=== PATIENT | female | born 1985 | race Caucasian/White ===

== ENCOUNTER → 2016-04-21 | Outpatient (REF) | payer OTHER ==
[~2016-04-21] MED LIST: BACT2CRE TOP; BENT20TA PO; DICY20TA11 PO; DYMI137S; LIAL1.2T PO; MESA50SU PR; PROV2.5T PO; SALI0.653; TRI-TAB PO; UCER9TAB PO; [UNRECOGNIZED DRUG - CODE] PR
== END ==
LOC: M LAB REF 17:02
PROVIDERS: ATTEND Physician Assistant Medical
DX: J31.0 Chronic rhinitis (principal)

== ENCOUNTER 2016-05-24 12:28 | Outpatient (CLI) | payer OTHER ==
[~2016-05-24 12:28] MED LIST changes: +diphenhydrAMINE 25 MG CAP PO SCH
[2016-05-24] MEDS ORDERED: inFLIXimab INJECTION 400 MG in NS 210 ML IV ONE (12:45)
[2016-05-24] MEDS ORDERED: NS 1,000 ML IV SCH (12:45)
[2016-05-24] MEDS ORDERED: ESTRCAP PO (16:14)
[2016-05-24] MEDS ORDERED: PROV10TA PO (16:14)
== END 2016-05-24 15:55 | disposition home or self-care (01) ==
LOC: M INFU 12:28
PROVIDERS: ATTEND Internal Medicine Gastroenterology
DX: K51.90 Ulcerative colitis, unspecified, without complications (principal); Z88.2 Allergy status to sulfonamides; Z88.8 Allergy status to other drugs, medicaments and biological substances; Z79.818 Long term (current) use of other agents affecting estrogen receptors and estrogen levels
CPT/HCPCS: 96413; 96415; J1745

== ENCOUNTER → 2016-06-21 | Outpatient (CLI) | payer OTHER ==
[~2016-06-21] MED LIST changes: +ESTRCAP PO; +INFL10VL IV; +PRED10PA PO; +PREN1TAB11 PO; +PROV10TA PO; +TRINTAB PO; -diphenhydrAMINE 25 MG CAP PO SCH
[2016-06-21 13:31] LABS: BASO % 0.4 % (0.0-1.0); EOS # 0.5 K/mm3 (0.0-0.50); EOS % 3.8 % (0.0-3.0); LARGE UNSTAINED CELL # 0.2 K/mm3 (0.0-0.4); LARGE UNSTAINED CELL % 1.6 % (0.0-4.0); LYMPH # 4.5 K/mm3 (1.5-4.5); LYMPH % 35.7 % (24.0-44.0); MEAN CORPUSCULAR HEMOGLOBIN 29.4 pg (27.0-33.0); MEAN CORPUSCULAR HGB CONC 32.8 g/dl (32.0-36.5); MEAN CORPUSCULAR VOLUME 89.5 fl (80.0-96.0); MONO # 0.6 K/mm3 (0.0-0.8); MONO % 4.8 % (0.0-5.0); NEUTROPHILS # 6.5 K/mm3 (1.8-7.7); NEUTROPHILS % 53.7 % (36.0-66.0); PLATELET COUNT, AUTOMATED 238 k/mm3 (150-450); RED CELL DISTRIBUTION WIDTH 12.7 % (11.5-14.5)
[2016-06-21 13:56] LABS: ALBUMIN 3.9 GM/DL (3.2-5.2); ALBUMIN/GLOBULIN RATIO 1.22 (1.00-1.93); ALKALINE PHOSPHATASE 124 U/L (45-117); ALT/SGPT 33 U/L (12-78); ANION GAP 9 MEQ/L (8-16); AST/SGOT 19 U/L (15-37); BILIRUBIN,TOTAL 0.3 MG/DL (0.2-1.0); BLOOD UREA NITROGEN 10 MG/DL (7-18); CARBON DIOXIDE LEVEL 28 MEQ/L (21-32); CHLORIDE LEVEL 104 MEQ/L (98-107); CREATININE FOR GFR 0.56 MG/DL (0.55-1.02); GLOMERULAR FILTRATION RATE > 60.0 (>60); SODIUM LEVEL 141 MEQ/L (136-145); TOTAL PROTEIN 7.1 GM/DL (6.4-8.2)
[2016-06-22 10:37] LABS: GLUCOSE, FASTING 70 MG/DL (70-105); WHITE BLOOD COUNT 12.1 K/mm3 (4.0-10.0)
== END ==
LOC: M LAB 12:28
PROVIDERS: ATTEND Internal Medicine Gastroenterology
DX: K51.318 Ulcerative (chronic) rectosigmoiditis with other complication (principal)

== ENCOUNTER → 2016-06-22 | Outpatient (REF) | payer OTHER | LOC: M LAB REF 09:34 | PROVIDERS: ATTEND Internal Medicine Gastroenterology | DX: K51.318 Ulcerative (chronic) rectosigmoiditis with other complication (principal) ==

== ENCOUNTER → 2016-06-23 | Outpatient (CLI) | payer OTHER ==
[~2016-06-23] VITALS: Ht 144.8 cm; Wt 76.2 kg
[~2016-06-23] MED LIST changes: +LIDOCAINE 2% INJ 100 MG/5 ML SDV (FOR ANES.) As Ordered ONE; +NS 1,000 ML IV SCH; +PROPOFOL 200 MG/20 ML VIAL As Ordered ONE
--- NOTE | 2016-06-23 15:26 | ROOR ---
Patient Name: Alice Garcia Procedure Date: 06/23/2016 2:51 PM Date of : 1985 Age: 30 Room: [facility] Gender: Female Note Status: Finalized Procedure: Colonoscopy Indications: Chronic diarrhea, Hematochezia, Personal history of ulcerative colitis Providers: Ronn EISENBERG MD Referring MD: Kurt Stephenson NP Requesting Provider: Medicines: Monitored Anesthesia Care Complications: No immediate complications. Procedure: Pre-Anesthesia Assessment: - The heart rate, respiratory rate, oxygen saturations, blood pressure, adequacy of pulmonary ventilation, and response to care were monitored throughout the procedure. The Colonoscope was introduced through the anus and advanced to 5 cm into the ileum. The colonoscopy was performed without difficulty. The patient tolerated the procedure well. The quality of the bowel preparation was good. Findings: The perianal and digital rectal examinations were normal. The terminal ileum appeared normal. Mild inflammation characterized by erythema and loss of vascularity was found in the rectum and in the recto-sigmoid colon. Biopsies were taken with a cold forceps for histology. The exam was otherwise without abnormality. Four biopsies were obtained with cold forceps for evaluation of chronic inflammation in the ascending colon, as well as four biopsies in the transverse colon, four biopsies in the descending colon and four biopsies in the sigmoid colon. Impression: - The examined portion of the ileum was normal. - The entire colon is essentially normal as well except for very mild inflammation was found in the rectum and in the recto-sigmoid colon secondary to proctosigmoid ulcerative colitis. Biopsied. - The examination was otherwise normal. - Biopsies performed in the ascending colon, in the transverse colon, in the descending colon and in the sigmoid colon. Recommendation: - Await pathology results. - Continue present medications. - Symptoms of diarrhea/pain may be out of proportion of todays minimal visual findings. - Your symptoms may be related to Irritable bowel rather than a flare of Inflammatory bowel. I will wait on biopsies before definitely changing biologic to Entyvio. -Start/cont Prednisone for now, -Use Dicyclomine as needed. -Return to my office as scheduled. - Return to my office in 2 weeks. Ronn Eisenberg MD Ronn EISENBERG MD 06/23/2016 3:25:30 PM This report has been signed electronically. Number of Addenda: 0 Note Initiated On: 06/23/2016 2:51 PM Estimated Blood Loss: Estimated blood loss: none.
[2016-06-23 15:46] VITALS: BP 117/69
== END | disposition home or self-care (01) ==
LOC: M OPP 12:43
PROVIDERS: ATTEND Internal Medicine Gastroenterology
DX: K92.1 Melena (principal); R19.7 Diarrhea, unspecified; K51.90 Ulcerative colitis, unspecified, without complications; K51.20 Ulcerative (chronic) proctitis without complications; E28.2 Polycystic ovarian syndrome; E04.1 Nontoxic single thyroid nodule; Z88.2 Allergy status to sulfonamides; Z88.8 Allergy status to other drugs, medicaments and biological substances; Z79.52 Long term (current) use of systemic steroids; Z79.899 Other long term (current) drug therapy; Z80.41 Family history of malignant neoplasm of ovary; Z80.0 Family history of malignant neoplasm of digestive organs

== ENCOUNTER 2016-07-05 12:33 | Outpatient (CLI) | payer OTHER ==
[~2016-07-05] VITALS: Ht 144.8 cm; Wt 75.0 kg
[~2016-07-05 12:33] MED LIST changes: -LIDOCAINE 2% INJ 100 MG/5 ML SDV (FOR ANES.) As Ordered ONE; -NS 1,000 ML IV SCH; -PROPOFOL 200 MG/20 ML VIAL As Ordered ONE; +diphenhydrAMINE 25 MG CAP PO SCH
[2016-07-05] MEDS ORDERED: NS 1,000 ML IV SCH (13:00)
[2016-07-05] MEDS ORDERED: inFLIXimab INJECTION 400 MG in NS 210 ML IV ONE (14:00)
[2016-07-05] MEDS ORDERED: ESTR1TAB3 PO (15:30)
== END 2016-07-05 15:35 | disposition home or self-care (01) ==
LOC: M INFU 12:33
PROVIDERS: ATTEND Internal Medicine Gastroenterology
DX: K51.90 Ulcerative colitis, unspecified, without complications (principal); Z79.52 Long term (current) use of systemic steroids; Z88.2 Allergy status to sulfonamides; Z88.8 Allergy status to other drugs, medicaments and biological substances
CPT/HCPCS: 96413; 96415; J1745

== ENCOUNTER → 2016-07-13 | Outpatient (CLI) | payer OTHER ==
[~2016-07-13] MED LIST changes: +ESTR1TAB3 PO; -diphenhydrAMINE 25 MG CAP PO SCH
== END ==
LOC: M LAB 09:39
PROVIDERS: ATTEND Internal Medicine Gastroenterology
DX: K51.318 Ulcerative (chronic) rectosigmoiditis with other complication (principal)

== ENCOUNTER 2016-08-16 12:38 | Outpatient (CLI) | payer OTHER ==
[~2016-08-16] VITALS: Ht 144.8 cm; Wt 77.5 kg
[2016-08-16] MEDS ORDERED: VEDOLIZUMAB 300 MG in NS 250 ML IV ONE (12:45)
[2016-08-16] MEDS ORDERED: diphenhydrAMINE 25 MG CAP PO ONE (12:45)
[2016-08-16] MEDS ORDERED: ACETAMINOPHEN TAB 650MG DOSE (2X325MG) PO ONE (12:45)
== END 2016-08-16 15:45 | disposition home or self-care (01) ==
LOC: M INFU 12:38
PROVIDERS: ATTEND Internal Medicine Gastroenterology
DX: K51.318 Ulcerative (chronic) rectosigmoiditis with other complication (principal); Z88.2 Allergy status to sulfonamides; Z79.899 Other long term (current) drug therapy
CPT/HCPCS: 96413; J3380

== ENCOUNTER → 2016-08-23 | Outpatient (CLI) | payer OTHER | LOC: M LAB 08:38 | PROVIDERS: ATTEND Obstetrics & Gynecology | DX: R91.1 Solitary pulmonary nodule (principal) ==

== ENCOUNTER → 2016-11-02 | Outpatient (CLI) | payer OTHER ==
[~2016-11-02] MED LIST changes: +SALI0.6523; -SALI0.653; -TRINTAB PO; +TRINTAB3 PO
== END ==
LOC: M SMT 08:20
PROVIDERS: ATTEND Obstetrics & Gynecology
DX: N91.1 Secondary amenorrhea (principal)

== ENCOUNTER → 2017-01-02 | Outpatient (CLI) | payer OTHER | LOC: M LAB 15:53 | PROVIDERS: ATTEND Obstetrics & Gynecology | DX: E28.2 Polycystic ovarian syndrome (principal) ==

== ENCOUNTER → 2017-01-31 | Outpatient (CLI) | payer OTHER ==
[2017-01-31 11:05] LABS: BASO % 0.4 % (0.0-1.0); EOS # 0.2 10^3/uL (0.0-0.50); EOS % 2.1 % (0.0-3.0); IMMATURE GRANULOCYTE % 0.3 % (0-0); LYMPH # 4.1 10^3/uL (1.5-4.5); LYMPH % 38.8 % (24.0-44.0); MEAN CORPUSCULAR HEMOGLOBIN 30.2 pg (27.0-33.0); MEAN CORPUSCULAR HGB CONC 33.2 g/dl (32.0-36.5); MEAN CORPUSCULAR VOLUME 91.2 fl (80.0-96.0); MONO # 0.4 10^3/uL (0.0-0.8); MONO % 4.1 % (0.0-5.0); NEUTROPHILS # 5.7 10^3/uL (1.8-7.7); NEUTROPHILS % 54.3 % (36.0-66.0); PLATELET COUNT, AUTOMATED 234 10^3/uL (150-450); RED CELL DISTRIBUTION WIDTH 13.4 % (11.5-14.5); WHITE BLOOD COUNT 10.5 10^3/uL (4.0-10.0)
[2017-01-31 11:46] LABS: ALKALINE PHOSPHATASE 103 U/L (45-117); ALT/SGPT 26 U/L (12-78); ANION GAP 8 MEQ/L (8-16); AST/SGOT 15 U/L (15-37); BLOOD UREA NITROGEN 11 MG/DL (7-18); CARBON DIOXIDE LEVEL 29 MEQ/L (21-32); CHLORIDE LEVEL 104 MEQ/L (98-107); CREATININE FOR GFR 0.61 MG/DL (0.55-1.02); GLOMERULAR FILTRATION RATE > 60.0 (>60); GLUCOSE, FASTING 130 MG/DL (70-105); POTASSIUM SERUM 3.8 MEQ/L (3.5-5.1); SODIUM LEVEL 141 MEQ/L (136-145)
[2017-01-31 11:47] LABS: ALBUMIN 3.4 GM/DL (3.2-5.2); BILIRUBIN,TOTAL 0.3 MG/DL (0.2-1.0); TOTAL PROTEIN 6.5 GM/DL (6.4-8.2)
== END ==
LOC: M LAB 09:28
PROVIDERS: ATTEND Internal Medicine Gastroenterology
DX: K51.30 Ulcerative (chronic) rectosigmoiditis without complications (principal)

== ENCOUNTER → 2017-03-12 | Outpatient (CLI) | payer OTHER | LOC: M LAB 10:25 | PROVIDERS: ATTEND Obstetrics & Gynecology | DX: E28.2 Polycystic ovarian syndrome (principal) ==

== ENCOUNTER → 2017-04-14 | Outpatient (CLI) | payer OTHER ==
[2017-04-16 10:46] LABS: PROGESTERONE 15.4 NG/ML
== END ==
LOC: M LAB 10:24
DX: N91.1 Secondary amenorrhea (principal)
CPT/HCPCS: 84144

== ENCOUNTER → 2017-05-13 | Outpatient (CLI) | payer OTHER | LOC: M LAB 13:00 | DX: N91.1 Secondary amenorrhea (principal) ==

== ENCOUNTER → 2017-05-14 | Outpatient (CLI) | payer OTHER | LOC: M RAD 16:02 | DX: J20.9 Acute bronchitis, unspecified (principal) ==

== ENCOUNTER → 2017-05-21 | Outpatient (CLI) | payer OTHER ==
[2017-05-21 12:29] LABS: HCG, SERUM QUANTITATIVE 238 MIU/ML
== END ==
LOC: M LAB 11:09
DX: Z32.01 Encounter for pregnancy test, result positive (principal)
CPT/HCPCS: 84702

== ENCOUNTER → 2017-05-23 | Outpatient (CLI) | payer OTHER ==
[2017-05-23 09:19] LABS: HCG, SERUM QUANTITATIVE 508 MIU/ML
== END ==
LOC: M LAB 08:25
DX: Z32.01 Encounter for pregnancy test, result positive (principal)

== ENCOUNTER → 2017-05-25 | Outpatient (CLI) | payer OTHER ==
[2017-05-25 09:04] LABS: HCG, SERUM QUANTITATIVE 1018 MIU/ML
== END ==
LOC: M LAB 08:10
DX: N91.1 Secondary amenorrhea (principal)

== ENCOUNTER → 2017-05-31 | Outpatient (CLI) | payer OTHER | LOC: M RAD 10:27 | DX: Z34.81 Encounter for supervision of other normal pregnancy, first trimester (principal); Z3A.01 Less than 8 weeks gestation of pregnancy ==

== ENCOUNTER → 2017-07-03 | Outpatient (CLI) | payer OTHER ==
[2017-07-03 18:42] LABS: BASO % 0.3 % (0.0-1.0); EOS # 0.3 10^3/uL (0.0-0.50); EOS % 1.8 % (0.0-3.0); HEMATOCRIT 37.9 % (36.0-47.0); HEMOGLOBIN 12.2 g/dl (12.0-16.0); IMMATURE GRANULOCYTE % 0.3 % (0-3.0); LYMPH # 4.3 10^3/uL (1.5-4.5); LYMPH % 28.9 % (24.0-44.0); MEAN CORPUSCULAR HEMOGLOBIN 29.5 pg (27.0-33.0); MEAN CORPUSCULAR HGB CONC 32.2 g/dl (32.0-36.5); MEAN CORPUSCULAR VOLUME 91.8 fl (80.0-96.0); MONO # 0.9 10^3/uL (0.0-0.8); MONO % 6.2 % (0.0-5.0); NEUTROPHILS # 9.2 10^3/uL (1.8-7.7); NEUTROPHILS % 62.5 % (36.0-66.0); PLATELET COUNT, AUTOMATED 233 10^3/uL (150-450); RED BLOOD COUNT 4.13 10^6/uL (4.00-5.40); RED CELL DISTRIBUTION WIDTH 13.9 % (11.5-14.5); WHITE BLOOD COUNT 14.8 10^3/uL (4.0-10.0)
[2017-07-03 20:55] LABS: CHLAMYDIA DNA AMPLIFICATION NEGATIVE (NEGATIVE); GC DNA AMPLIFICATION NEGATIVE (NEGATIVE)
[2017-07-04 11:56] LABS: RUBELLA IgG QUALITATIVE IMMUNE (IMMUNE)
[2017-07-04 12:12] LABS: HBsAg Prenatal NEGATIVE (NEGATIVE)
[2017-07-04 12:27] LABS: HEPATITIS C VIRUS ABY INDEX 0.2 INDEX (<0.8)
[2017-07-04 12:28] LABS: HIV 1&2 SCREEN CENTAUR NEGATIVE (NEGATIVE)
== END ==
LOC: M SMT 15:05
DX: Z34.81 Encounter for supervision of other normal pregnancy, first trimester (principal); Z3A.10 10 weeks gestation of pregnancy
CPT/HCPCS: 86762

== ENCOUNTER → 2017-07-31 | Outpatient (REF) | payer OTHER | LOC: M LAB REF 17:10 | DX: Z34.82 Encounter for supervision of other normal pregnancy, second trimester (principal) ==

== ENCOUNTER → 2017-08-09 | Outpatient (CLI) | payer OTHER ==
[2017-08-12 00:06] LABS: QUANTIFERON GOLD TB Negative (Negative); TB Test (QFT) Antigen Minus Ni 0.01 IU/mL (.); TB Test (QFT) Mitogen 8.33 IU/mL (.); TB Test (QFT) Nil 0.29 IU/mL (.)
== END ==
LOC: M LAB 11:51
DX: K51.30 Ulcerative (chronic) rectosigmoiditis without complications (principal)

== ENCOUNTER → 2017-08-27 | Outpatient (CLI) | payer OTHER | LOC: M RAD 17:30 | DX: Z34.82 Encounter for supervision of other normal pregnancy, second trimester (principal) | CPT/HCPCS: 76811 ==

== ENCOUNTER → 2017-08-28 | Outpatient (REF) | payer OTHER | LOC: M LAB REF 16:32 | DX: J33.9 Nasal polyp, unspecified (principal) ==

== ENCOUNTER → 2017-09-11 | Outpatient (CLI) | payer OTHER | LOC: M RAD 18:03 | DX: Z34.82 Encounter for supervision of other normal pregnancy, second trimester (principal); Z3A.20 20 weeks gestation of pregnancy; Z36.89 Encounter for other specified antenatal screening | CPT/HCPCS: 76816 ==

== ENCOUNTER → 2017-10-24 | Outpatient (CLI) | payer OTHER ==
[2017-10-24 10:29] LABS: GLUCOSE CHALLENGE TEST 1 HOUR 211 MG/DL (LESS THAN 140)
[2017-10-24 10:31] LABS: HEMATOCRIT 36.2 % (36.0-47.0); HEMOGLOBIN 11.8 g/dl (12.0-15.5); MEAN CORPUSCULAR HEMOGLOBIN 30.4 pg (27.0-33.0); MEAN CORPUSCULAR HGB CONC 32.6 g/dl (32.0-36.5); MEAN CORPUSCULAR VOLUME 93.3 fl (80.0-96.0); PLATELET COUNT, AUTOMATED 180 10^3/uL (150-450); RED BLOOD COUNT 3.88 10^6/uL (4.00-5.40); WHITE BLOOD COUNT 14.2 10^3/uL (4.0-10.0)
== END ==
LOC: M LAB 08:04
DX: Z34.82 Encounter for supervision of other normal pregnancy, second trimester (principal); Z3A.00 Weeks of gestation of pregnancy not specified
CPT/HCPCS: 82950

== ENCOUNTER → 2017-11-30 | Outpatient (CLI) | payer OTHER | LOC: M RAD 07:13 | DX: O24.415 Gestational diabetes mellitus in pregnancy, controlled by oral hypoglycemic drugs (principal); Z36.9 Encounter for antenatal screening, unspecified; Z3A.33 33 weeks gestation of pregnancy | CPT/HCPCS: 76816 ==

== ENCOUNTER → 2017-12-21 | Outpatient (CLI) | payer OTHER | LOC: M RAD 06:58 | DX: O24.415 Gestational diabetes mellitus in pregnancy, controlled by oral hypoglycemic drugs (principal); Z3A.35 35 weeks gestation of pregnancy | CPT/HCPCS: 76816 ==

== ENCOUNTER → 2017-12-28 | Outpatient (REF) | payer OTHER | LOC: M LAB REF 16:59 | DX: Z34.83 Encounter for supervision of other normal pregnancy, third trimester (principal); Z36.85 Encounter for antenatal screening for Streptococcus B ==

== ENCOUNTER → 2018-01-11 | Outpatient (CLI) | payer OTHER | LOC: M RAD 07:34 | DX: O24.415 Gestational diabetes mellitus in pregnancy, controlled by oral hypoglycemic drugs (principal); Z3A.38 38 weeks gestation of pregnancy | CPT/HCPCS: 76816 ==

== ENCOUNTER 2018-01-22 06:47 | Inpatient (IN) | payer OTHER ==
[2018-01-22] MEDS: LR 1,000 ML IV ×5 (00:30→23:30)
[2018-01-22] MEDS ORDERED: LR 1,000 ML IV (07:30)
[2018-01-22 08:11] LABS: HEMATOCRIT 38.5 % (36.0-47.0); HEMOGLOBIN 12.6 g/dl (12.0-15.5); MEAN CORPUSCULAR HGB CONC 32.7 g/dl (32.0-36.5); MEAN CORPUSCULAR VOLUME 88.5 fl (80.0-96.0); PLATELET COUNT, AUTOMATED 173 10^3/uL (150-450); RED BLOOD COUNT 4.35 10^6/uL (4.00-5.40)
[2018-01-22] MEDS: BICITRA 30ML SOLN UDC PO (08:33)
[2018-01-22] MEDS ORDERED: ONDANSETRON 4MG/2ML VIAL (J2405) IV ×2 (09:01→10:45)
[2018-01-22] MEDS ORDERED: NALBUPHINE HCL 10 MG/ML AMP (J2300) IV ×2 (09:01→10:45)
[2018-01-22] MEDS ORDERED: NALOXONE INJ 0.4 MG/1 ML VIAL (J2310) IV ×2 (09:01)
[2018-01-22] MEDS ORDERED: PHENYLephrine HCL 500 MCG/5 ML (100MCG/ML) SYRINGE (J2370) As Ordered (09:22)
[2018-01-22] MEDS ORDERED: OXYTOCIN INJ 10 UNITS/ML VIAL (J2590) As Ordered ×4 (09:22→10:06)
[2018-01-22] MEDS ORDERED: KETOROLAC 60 MG/2 ML VIAL (J1885) As Ordered (09:22)
[2018-01-22] MEDS ORDERED: MORPHINE PRES-FREE INJ 10 MG/10 ML VIAL (J2274) As Ordered (09:22)
[2018-01-22] MEDS ORDERED: dexameTHASONE 4 MG/ML 1ML VIAL (J1100) As Ordered (09:22)
[2018-01-22] MEDS ORDERED: ePHEDrine SULFATE 25 MG/5 ML(5MG/ML) SYRINGE As Ordered (09:22)
[2018-01-22] MEDS ORDERED: ONDANSETRON 4MG/2ML VIAL (J2405) As Ordered (09:22)
[2018-01-22] MEDS ORDERED: OXYTOCIN 30 UNITS IN 0.9% NaCl 500ML IV BAG (J2590) As Ordered (10:07)
[2018-01-22] MEDS ORDERED: MORPHINE 10 MG/ML 1ML VIAL (J2270) IV (10:45)
[2018-01-22] MEDS ORDERED: MOM 30ML SUSPENSION UDC PO (10:45)
[2018-01-22] MEDS ORDERED: DOCUSATE SODIUM 100 MG CAP PO (10:45)
[2018-01-22] MEDS ORDERED: PERCOCET 5MG/325MG TAB PO (10:45)
[2018-01-22] MEDS ORDERED: fentaNYL 100 MCG/2 ML INJECTION (J3010) IV (10:45)
[2018-01-22] MEDS: OXYTOCIN DRIP 30 UNITS in APPROPRIATE DILUENT 1 EA IV (11:16)
[2018-01-22] MEDS: MEASLES,MUMPS,RUBELLA VACCINE INJ (MMR-II) (90707) SC (13:44)
[2018-01-22] MEDS: KETOROLAC 30 MG/ML VIAL (J1885) IV ×2 (15:51→21:57)
[2018-01-22] MEDS: METOCLOPRAMIDE INJ 10MG/2ML VIAL (J2765) IV (18:31)
[2018-01-23] MEDS: KETOROLAC 30 MG/ML VIAL (J1885) IV (03:24)
[2018-01-23 07:30] LABS: HEMATOCRIT 29.4 % (36.0-47.0); MEAN CORPUSCULAR HEMOGLOBIN 28.7 pg (27.0-33.0); MEAN CORPUSCULAR HGB CONC 32.7 g/dl (32.0-36.5); PLATELET COUNT, AUTOMATED 149 10^3/uL (150-450); RED BLOOD COUNT 3.34 10^6/uL (4.00-5.40); RED CELL DISTRIBUTION WIDTH 15.1 % (11.5-14.5); WHITE BLOOD COUNT 15.8 10^3/uL (4.0-10.0)
[2018-01-23 07:36] LABS: HEMOGLOBIN 9.6 g/dl (12.0-15.5)
[2018-01-23] MEDS: PERCOCET 5MG/325MG TAB PO ×2 (10:20→22:07)
[2018-01-23] MEDS: PRENATAL VITAMINS CHEWABLE TABLET PO (10:20)
[2018-01-23] MEDS: INFLUENZA QUADRIVALENT PF VACCINE 0.5ML SYRINGE (90686) IM (10:21)
[2018-01-23] MEDS: IBUPROFEN 800 MG TAB PO ×2 (12:26→20:14)
[2018-01-24] MEDS: IBUPROFEN 800 MG TAB PO (04:14)
[2018-01-24] MEDS: PERCOCET 5MG/325MG TAB PO (10:18)
[2018-01-24] MEDS: PRENATAL VITAMINS CHEWABLE TABLET PO (10:19)
== END 2018-01-24 11:20 | disposition home or self-care (01) | DRG 788 ==
LOC: M LDI 06:47 → M OBS 11:39
PROVIDERS: Obstetrics & Gynecology
PROC: 10D00Z1 Extraction of Products of Conception, Low, Open Approach (ICD-10-PCS; principal; 2018-01-22 08:30)
DX: O34.211 Maternal care for low transverse scar from previous cesarean delivery (principal); Z3A.39 39 weeks gestation of pregnancy; O24.425 Gestational diabetes mellitus in childbirth, controlled by oral hypoglycemic drugs; Z37.0 Single live birth

== ENCOUNTER → 2018-02-05 | Outpatient (REF) | payer OTHER | LOC: M LAB REF 13:05 | DX: R30.0 Dysuria (principal) ==

== ENCOUNTER → 2018-10-26 | Outpatient (CLI) | payer OTHER ==
[~2018-10-26] MED LIST changes: +IBUP1TAB7 PO; +METF500T13 PO; +PERCOCET PO; -SALI0.6523; +SALI0.6528; +TRINTAB PO; -TRINTAB3 PO
[2018-10-28 11:18] LABS: HEPATITIS B SURFACE ANTIBODY NEGATIVE (POSITIVE)
== END ==
LOC: M LAB 09:54
PROVIDERS: ATTEND Internal Medicine Gastroenterology
DX: K51.20 Ulcerative (chronic) proctitis without complications (principal)

== ENCOUNTER → 2018-11-09 | Outpatient (CLI) | payer OTHER | LOC: M LAB 10:40 | PROVIDERS: ATTEND Internal Medicine Gastroenterology | DX: K51.30 Ulcerative (chronic) rectosigmoiditis without complications (principal) ==

== ENCOUNTER → 2018-11-11 | Outpatient (CLI) | payer OTHER | LOC: M LAB 14:34 | PROVIDERS: ATTEND Internal Medicine Gastroenterology | DX: K51.30 Ulcerative (chronic) rectosigmoiditis without complications (principal) ==

== ENCOUNTER → 2018-12-25 | Outpatient (REF) | payer OTHER ==
[2018-12-28 15:06] LABS: HPV HYBRID CAPTURE II Negative (Negative)
== END ==
LOC: M LAB REF 18:48
PROVIDERS: ATTEND Obstetrics & Gynecology
DX: Z12.4 Encounter for screening for malignant neoplasm of cervix (principal)
CPT/HCPCS: 87624; G0123

== ENCOUNTER → 2018-12-25 | Outpatient (CLI) | payer OTHER | LOC: M SMT 14:39 | PROVIDERS: ATTEND Obstetrics & Gynecology | DX: Z31.438 Encounter for other genetic testing of female for procreative management (principal) ==

== ENCOUNTER → 2019-03-20 | Outpatient (REF) | payer OTHER ==
[2019-03-25 08:06] LABS: BORDETELLA PARAPERTUSSIS PCR Negative (Negative); BORDETELLA PERTUSSIS BY PCR Negative (Negative)
== END ==
LOC: M SFHCLERA 12:44
PROVIDERS: ATTEND Nurse Practitioner Family
DX: Z20.818 Contact with and (suspected) exposure to other bacterial communicable diseases (principal)

== ENCOUNTER → 2019-12-06 | Outpatient (CLI) | payer OTHER | LOC: M LAB 10:35 | PROVIDERS: ATTEND Internal Medicine Gastroenterology | DX: K51.30 Ulcerative (chronic) rectosigmoiditis without complications (principal) ==

== ENCOUNTER → 2019-12-11 | Outpatient (REF) | payer OTHER | LOC: M LAB REF 12:16 | PROVIDERS: ATTEND Internal Medicine Gastroenterology | DX: K51.30 Ulcerative (chronic) rectosigmoiditis without complications (principal) ==

== ENCOUNTER → 2021-06-06 | Outpatient (CLI) | payer OTHER ==
[~2021-06-06] MED LIST changes: -DICY20TA11 PO; +DICY20TA20 PO
== END ==
LOC: M RAD 15:03
PROVIDERS: ATTEND Nurse Practitioner Family
DX: J45.40 Moderate persistent asthma, uncomplicated (principal)

== ENCOUNTER → 2021-07-02 | Outpatient (CLI) | payer OTHER ==
[2021-07-02 10:57] LABS: BASO # 0.1 10^3/uL (0.0-0.2); BASO % 0.5 % (0.0-1.0); EOS # 0.2 10^3/uL (0.0-0.5); HEMATOCRIT 41.3 % (36.0-47.0); HEMOGLOBIN 13.6 g/dl (12.0-15.5); LYMPH % 33.6 % (24.0-44.0); MEAN CORPUSCULAR HEMOGLOBIN 29.4 pg (27.0-33.0); MEAN CORPUSCULAR HGB CONC 32.9 g/dl (32.0-36.5); MEAN CORPUSCULAR VOLUME 89.4 fl (80.0-96.0); MONO # 0.6 10^3/uL (0.0-0.8); MONO % 4.9 % (2.0-8.0); NEUTROPHILS % 58.7 % (36.0-66.0); PLATELET COUNT, AUTOMATED 252 10^3/uL (150-450); RED BLOOD COUNT 4.62 10^6/uL (4.00-5.40); WHITE BLOOD COUNT 11.9 10^3/uL (4.0-10.0)
[2021-07-02 11:28] LABS: ALBUMIN 3.7 GM/DL (3.2-5.2); ALT/SGPT 24 U/L (12-78); BILIRUBIN,TOTAL 0.3 MG/DL (0.2-1.0); BLOOD UREA NITROGEN 11 MG/DL (7-18); CARBON DIOXIDE LEVEL 29 MEQ/L (21-32); CHLORIDE LEVEL 108 MEQ/L (98-107); CHOLESTEROL LEVEL 209 MG/DL (<200); CHOLESTEROL RISK RATIO 3.073 (<5); CREATININE FOR GFR 0.59 MG/DL (0.55-1.30); GLOMERULAR FILTRATION RATE > 60.0 (>60); GLUCOSE, FASTING 100 MG/DL (70-100); HDL CHOLESTEROL 68 MG/DL (>40); LDL CHOLESTEROL 125 MG/DL (<100); NON-HDL-C 141 MG/DL; POTASSIUM SERUM 4.1 MEQ/L (3.5-5.1); SODIUM LEVEL 141 MEQ/L (136-145); TRIGLYCERIDES LEVEL 82 MG/DL (<150)
== END ==
LOC: M LAB 09:50
PROVIDERS: ATTEND Nurse Practitioner Family
DX: Z00.00 Encounter for general adult medical examination without abnormal findings (principal)

== ENCOUNTER → 2021-07-07 | Outpatient (CLI) | payer OTHER ==
[2021-07-07 15:22] LABS: C REACTIVE PROTEIN QUANTITATIV 2.83 MG/DL (0.00-0.30)
[2021-07-07 15:39] LABS: HEPATITIS B SURFACE ANTIGEN NEGATIVE (NEGATIVE)
== END ==
LOC: M LAB 13:53
PROVIDERS: ATTEND Internal Medicine Gastroenterology
DX: K51.30 Ulcerative (chronic) rectosigmoiditis without complications (principal)

== ENCOUNTER → 2021-07-09 | Outpatient (REF) | payer OTHER | LOC: M LAB REF 12:42 | PROVIDERS: ATTEND Internal Medicine Gastroenterology | DX: K51.30 Ulcerative (chronic) rectosigmoiditis without complications (principal) ==

== ENCOUNTER → 2021-10-01 | Outpatient (REF) | payer OTHER | LOC: M LAB REF 08:10 | PROVIDERS: ATTEND Internal Medicine Gastroenterology | DX: K51.318 Ulcerative (chronic) rectosigmoiditis with other complication (principal) ==

== ENCOUNTER → 2021-11-30 | Outpatient (REF) | payer OTHER | LOC: M PLALAB 11:41 | PROVIDERS: ATTEND Nurse Practitioner Family | DX: Z12.4 Encounter for screening for malignant neoplasm of cervix (principal) | CPT/HCPCS: 87624; G0123 ==

== ENCOUNTER → 2022-01-05 | Outpatient (CLI) | payer OTHER ==
[~2022-01-05] MED LIST changes: +ADVA45AE INH; +DICY10CA13 PO; +HUMI40IN2 SC; +JUNETAB2 PO; +MONT10TA97 PO
== END ==
LOC: M LABSMTC 10:03
PROVIDERS: ATTEND Anesthesiology
DX: Z01.818 Encounter for other preprocedural examination (principal); Z11.52 Encounter for screening for COVID-19

== ENCOUNTER 2022-01-10 07:41 | Day surgery (SDC) | payer OTHER ==
[~2022-01-10] VITALS: Ht 144.8 cm; Wt 82.6 kg
[~2022-01-10 07:41] MED LIST changes: +NS 1,000 ML IV ONE
[2022-01-10] MEDS ORDERED: propofoL 200 MG/20 ML VIAL As Ordered ONE ×2 (09:08→09:16)
[2022-01-10] MEDS ORDERED: LIDOCAINE 2% 100MG/5ML SDV (FOR ANES.) As Ordered ONE (09:08)
[2022-01-10 09:40] VITALS: BP 147/79
== END 2022-01-10 09:47 | disposition home or self-care (01) ==
LOC: M OPP 07:41
PROVIDERS: ATTEND Internal Medicine Gastroenterology
DX: K51.30 Ulcerative (chronic) rectosigmoiditis without complications (principal); K57.30 Diverticulosis of large intestine without perforation or abscess without bleeding; K64.8 Other hemorrhoids; Z80.0 Family history of malignant neoplasm of digestive organs; Z79.1 Long term (current) use of non-steroidal anti-inflammatories (NSAID); Z79.3 Long term (current) use of hormonal contraceptives; Z79.51 Long term (current) use of inhaled steroids; Z79.52 Long term (current) use of systemic steroids; Z79.899 Other long term (current) drug therapy; Z88.2 Allergy status to sulfonamides; Z88.8 Allergy status to other drugs, medicaments and biological substances; E04.2 Nontoxic multinodular goiter; E28.2 Polycystic ovarian syndrome; J45.909 Unspecified asthma, uncomplicated; Z80.41 Family history of malignant neoplasm of ovary; Z86.19 Personal history of other infectious and parasitic diseases

== ENCOUNTER → 2022-06-20 | Outpatient (REF) | payer OTHER ==
[~2022-06-20] MED LIST changes: -NS 1,000 ML IV ONE
== END ==
LOC: M LAB REF 17:07
PROVIDERS: ATTEND Physician Assistant Medical
DX: J31.0 Chronic rhinitis (principal)

== ENCOUNTER → 2022-08-26 | Outpatient (CLI) | payer OTHER ==
[2022-08-26 12:05] LABS: BASO # 0.1 10^3/uL (0.0-0.2); BASO % 0.6 % (0.0-1.0); EOS # 0.3 10^3/uL (0.0-0.5); EOS % 1.9 % (0.0-3.0); HEMATOCRIT 41.1 % (36.0-47.0); HEMOGLOBIN 13.3 g/dl (12.0-15.5); LYMPH # 5.4 10^3/uL (1.5-5.0); LYMPH % 39.3 % (24.0-44.0); MEAN CORPUSCULAR HGB CONC 32.4 g/dl (32.0-36.5); MEAN CORPUSCULAR VOLUME 89.5 fl (80.0-96.0); MONO # 0.5 10^3/uL (0.0-0.8); MONO % 3.9 % (2.0-8.0); NEUTROPHILS # 7.4 10^3/uL (1.5-8.5); PLATELET COUNT, AUTOMATED 234 10^3/uL (150-450); RED BLOOD COUNT 4.59 10^6/uL (4.00-5.40); WHITE BLOOD COUNT 13.8 10^3/uL (4.0-10.0)
[2022-08-26 12:12] LABS: ERYTHROCYTE SEDIMENTATION RATE 42 mm/hr (0-20)
[2022-08-26 12:32] LABS: ALBUMIN 3.2 G/DL (3.2-5.2); ALKALINE PHOSPHATASE 79 U/L (46-116); ALT/SGPT 19 U/L (7.0-40); AST/SGOT 9 U/L (<34); BILIRUBIN,TOTAL 0.4 MG/DL (0.3-1.2); BLOOD UREA NITROGEN 13 MG/DL (9-23); CALCIUM LEVEL 8.8 MG/DL (8.5-10.1); CARBON DIOXIDE LEVEL 25 MMOL/L (20-31); CHLORIDE LEVEL 106 MMOL/L (98-107); CREATININE FOR GFR 0.58 MG/DL (0.55-1.30); GLOMERULAR FILTRATION RATE > 60.0 (>60); GLUCOSE, FASTING 169 MG/DL (60-100); POTASSIUM SERUM 3.9 MMOL/L (3.5-5.1); SODIUM LEVEL 140 MMOL/L (136-145); TOTAL PROTEIN 6.4 G/DL (5.7-8.2)
[2022-08-26 12:48] LABS: HEPATITIS B SURFACE ANTIGEN NEGATIVE (NEGATIVE)
== END ==
LOC: M LAB 11:17
PROVIDERS: ATTEND Internal Medicine Gastroenterology
DX: K51.30 Ulcerative (chronic) rectosigmoiditis without complications (principal)

== ENCOUNTER → 2022-12-16 | Outpatient (CLI) | payer BC ==
[~2022-12-16] MED LIST changes: +DICY-61 PO; -DICY10CA13 PO
[2022-12-16 09:44] LABS: HEMATOCRIT 38.8 % (36.0-47.0); HEMOGLOBIN 12.4 g/dl (12.0-15.5); MEAN CORPUSCULAR HEMOGLOBIN 28.6 pg (27.0-33.0); MEAN CORPUSCULAR VOLUME 89.6 fl (80.0-96.0); PLATELET COUNT, AUTOMATED 235 10^3/uL (150-450); RED BLOOD COUNT 4.33 10^6/uL (4.00-5.40); WHITE BLOOD COUNT 15.4 10^3/uL (4.0-10.0)
[2022-12-16 10:09] LABS: ATYPICAL LYMPH 31 % (0-5); LYMPHOCYTES 27 % (16-44); MONOCYTES 9 % (0-5); NEUTROPHILS 33 % (28-66); PLATELET ESTIMATE NORMAL (NORMAL)
[2022-12-16 10:13] LABS: HEMOGLOBIN A1c 6.3 % (4.0-6.0)
[2022-12-16 10:17] LABS: ALBUMIN 3.2 G/DL (3.2-5.2); ALKALINE PHOSPHATASE 71 U/L (46-116); ALT/SGPT 19 U/L (7.0-40); AST/SGOT < 8 U/L (<34); BILIRUBIN,TOTAL 0.3 MG/DL (0.3-1.2); BLOOD UREA NITROGEN 17 MG/DL (9-23); CALCIUM LEVEL 8.2 MG/DL (8.5-10.1); CARBON DIOXIDE LEVEL 26 MMOL/L (20-31); CHLORIDE LEVEL 107 MMOL/L (98-107); CHOLESTEROL LEVEL 174 MG/DL (<200); CHOLESTEROL RISK RATIO 2.35 (<5); CREATININE FOR GFR 0.68 MG/DL (0.55-1.30); GLOMERULAR FILTRATION RATE > 60.0 (>60); GLUCOSE, FASTING 111 MG/DL (60-100); POTASSIUM SERUM 3.4 MMOL/L (3.5-5.1); SODIUM LEVEL 141 MMOL/L (136-145); THYROID STIMULATING HORMONE 2.473 uIU/ML (0.55-4.78); TOTAL PROTEIN 6.2 G/DL (5.7-8.2); TRIGLYCERIDES LEVEL 85 MG/DL (<150)
== END ==
LOC: M LAB 09:05
PROVIDERS: ATTEND Registered Nurse
DX: R03.0 Elevated blood-pressure reading, without diagnosis of hypertension (principal); R63.5 Abnormal weight gain

== ENCOUNTER → 2023-02-03 | Outpatient (CLI) | payer BC ==
[2023-02-03 16:28] LABS: BASO # 0.1 10^3/uL (0.0-0.2); BASO % 0.7 % (0.0-1.0); EOS # 0.2 10^3/uL (0.0-0.5); EOS % 2.3 % (0.0-3.0); HEMATOCRIT 37.6 % (36.0-47.0); HEMOGLOBIN 12.7 g/dl (12.0-15.5); LYMPH # 3.9 10^3/uL (1.5-5.0); LYMPH % 39.7 % (24.0-44.0); MEAN CORPUSCULAR HEMOGLOBIN 29.4 pg (27.0-33.0); MEAN CORPUSCULAR HGB CONC 33.8 g/dl (32.0-36.5); MONO # 0.8 10^3/uL (0.0-0.8); MONO % 7.7 % (2.0-8.0); NEUTROPHILS # 4.9 10^3/uL (1.5-8.5); NEUTROPHILS % 49.4 % (36.0-66.0); PLATELET COUNT, AUTOMATED 245 10^3/uL (150-450); RED BLOOD COUNT 4.32 10^6/uL (4.00-5.40); WHITE BLOOD COUNT 9.9 10^3/uL (4.0-10.0)
== END ==
LOC: M LAB 15:41
PROVIDERS: ATTEND Registered Nurse
DX: R71.8 Other abnormality of red blood cells (principal)

== ENCOUNTER → 2023-03-19 | Outpatient (CLI) | payer BC | LOC: M RAD 17:05 | PROVIDERS: ATTEND Internal Medicine Pulmonary Disease | DX: J45.40 Moderate persistent asthma, uncomplicated (principal) ==

== ENCOUNTER 2023-07-22 13:31 | Emergency (ER) | payer BC, SELFPAY ==
[~2023-07-22] VITALS: Ht 144.8 cm; Wt 85.7 kg
[~2023-07-22 13:31] MED LIST changes: -ALBU8.5H; -AZEL1SPR3; -FLUC10TA PO; -METF-838; -PRED20TA; -REGL10TA6 PO
[2023-07-22] MEDS ORDERED: ALBU8.5H (13:40)
[2023-07-22] MEDS ORDERED: AZEL1SPR3 (13:40)
[2023-07-22] MEDS ORDERED: METF-838 (13:40)
[2023-07-22] MEDS ORDERED: PRED20TA (13:40)
[2023-07-22 14:37] LABS: BASO # 0.1 10^3/uL (0.0-0.2); BASO % 0.3 % (0.0-1.0); EOS # 0.3 10^3/uL (0.0-0.5); EOS % 1.2 % (0.0-3.0); HEMATOCRIT 38.2 % (36.0-47.0); HEMOGLOBIN 12.6 g/dl (12.0-15.5); LYMPH # 5.2 10^3/uL (1.5-5.0); LYMPH % 24.3 % (24.0-44.0); MEAN CORPUSCULAR HEMOGLOBIN 29.5 pg (27.0-33.0); MEAN CORPUSCULAR VOLUME 89.5 fl (80.0-96.0); MONO # 1.2 10^3/uL (0.0-0.8); MONO % 5.6 % (2.0-8.0); NEUTROPHILS # 14.5 10^3/uL (1.5-8.5); NEUTROPHILS % 68.2 % (36.0-66.0); PLATELET COUNT, AUTOMATED 235 10^3/uL (150-450); RED BLOOD COUNT 4.27 10^6/uL (4.00-5.40); WHITE BLOOD COUNT 21.3 10^3/uL (4.0-10.0)
[2023-07-22 14:58] LABS: ALBUMIN 3.2 G/DL (3.2-5.2); BILIRUBIN,DIRECT 0.1 MG/DL (<0.4); BILIRUBIN,TOTAL 0.4 MG/DL (0.3-1.2); TOTAL PROTEIN 6.4 G/DL (5.7-8.2)
[2023-07-22] MEDS ORDERED: ISOVUE-370 76% 100ML VIAL As Ordered ONE (15:20)
[2023-07-22] MEDS: NS 1,000 ML IV ONE (15:21)
[2023-07-22] MEDS: MORPHINE 4 MG/ML 1ML VIAL IV ONE (15:21)
[2023-07-22] MEDS: ONDANSETRON 4MG 2ML VIAL IV ONE (15:21)
[2023-07-22] MEDS: PIPERACILLIN/TAZOBACTAM SOD 3.375 GM in D5W MINI-BAG PLUS 50 ML IV ONE (16:45)
[2023-07-22] MEDS: ACETAMINOPHEN TAB 650MG DOSE (2X325MG) PO ONE (17:17)
[2023-07-22] MEDS ORDERED: REGL10TA6 PO (18:01)
[2023-07-22] MEDS ORDERED: CIPR-249 PO (18:01)
[2023-07-22] MEDS ORDERED: METR-265 PO (18:01)
[2023-07-22] MEDS ORDERED: FLUC10TA PO (18:04)
[2023-07-22 18:38] VITALS: BP 125/62; TEMP 98.9; O2SAT 96
== END 2023-07-22 18:40 | disposition home or self-care (01) ==
LOC: M ED 14:24
DX: K57.32 Diverticulitis of large intestine without perforation or abscess without bleeding (principal); Z87.19 Personal history of other diseases of the digestive system; Z79.899 Other long term (current) drug therapy; Z88.2 Allergy status to sulfonamides; Z88.8 Allergy status to other drugs, medicaments and biological substances
CPT/HCPCS: 74177; 80047; 80076; 83605; 83690; 84702; 85025; 87040; 96365; 96366; 96375; 99284; J2405; J2543; Q9967

== ENCOUNTER → 2023-07-22 | Outpatient (CLI) | payer BC, SELFPAY ==
[~2023-07-22] MED LIST changes: +ALBU8.5H; +AZEL1SPR3; +CIPR-249 PO; +FLUC10TA PO; +METF-838; +METR-265 PO; +PRED20TA; +REGL10TA6 PO; +SYMB16INH INH
[2023-07-22 09:27] LABS: ALBUMIN 3.2 G/DL (3.2-5.2); ALKALINE PHOSPHATASE 84 U/L (46-116); ALT/SGPT 22 U/L (7.0-40); AST/SGOT 8 U/L (<34); BILIRUBIN,TOTAL 0.5 MG/DL (0.3-1.2); BLOOD UREA NITROGEN 14 MG/DL (9-23); CALCIUM LEVEL 8.4 MG/DL (8.5-10.1); CARBON DIOXIDE LEVEL 24 MMOL/L (20-31); CHLORIDE LEVEL 102 MMOL/L (98-107); CHOLESTEROL LEVEL 174 MG/DL (<200); CHOLESTEROL RISK RATIO 2.33 (<5); CREATININE FOR GFR 0.58 MG/DL (0.55-1.30); GLOMERULAR FILTRATION RATE > 60.0 (>60); GLUCOSE, FASTING 145 MG/DL (60-100); HDL CHOLESTEROL 74.5 MG/DL (>40); LDL CHOLESTEROL 72.9 MG/DL (<100); NON-HDL-C 99.5 MG/DL; POTASSIUM SERUM 3.6 MMOL/L (3.5-5.1); SODIUM LEVEL 138 MMOL/L (136-145); TOTAL PROTEIN 6.4 G/DL (5.7-8.2); TRIGLYCERIDES LEVEL 133 MG/DL (<150)
== END ==
LOC: M LAB 08:16
PROVIDERS: ATTEND Internal Medicine Gastroenterology
DX: K51.30 Ulcerative (chronic) rectosigmoiditis without complications (principal)

== ENCOUNTER → 2023-07-22 | Outpatient (CLI) | payer BC, SELFPAY ==
[2023-07-22 09:16] LABS: HEMATOCRIT 41.6 % (36.0-47.0); HEMOGLOBIN 13.8 g/dl (12.0-15.5); MEAN CORPUSCULAR HEMOGLOBIN 29.9 pg (27.0-33.0); MEAN CORPUSCULAR HGB CONC 33.2 g/dl (32.0-36.5); RED BLOOD COUNT 4.62 10^6/uL (4.00-5.40); WHITE BLOOD COUNT 21.8 10^3/uL (4.0-10.0)
[2023-07-22 09:26] LABS: ALBUMIN 3.4 G/DL (3.2-5.2); ALKALINE PHOSPHATASE 81 U/L (46-116); ALT/SGPT 20 U/L (7.0-40); AST/SGOT 9 U/L (<34); BILIRUBIN,TOTAL 0.5 MG/DL (0.3-1.2); BLOOD UREA NITROGEN 14 MG/DL (9-23); CALCIUM LEVEL 8.7 MG/DL (8.5-10.1); CARBON DIOXIDE LEVEL 25 MMOL/L (20-31); CHLORIDE LEVEL 104 MMOL/L (98-107); CHOLESTEROL LEVEL 174 MG/DL (<200); CHOLESTEROL RISK RATIO 2.36 (<5); CREATININE FOR GFR 0.58 MG/DL (0.55-1.30); GLOMERULAR FILTRATION RATE > 60.0 (>60); GLUCOSE, FASTING 138 MG/DL (60-100); HDL CHOLESTEROL 73.6 MG/DL (>40); LDL CHOLESTEROL 71.8 MG/DL (<100); NON-HDL-C 100.4 MG/DL; POTASSIUM SERUM 3.6 MMOL/L (3.5-5.1); SODIUM LEVEL 138 MMOL/L (136-145); TOTAL PROTEIN 6.5 G/DL (5.7-8.2); TRIGLYCERIDES LEVEL 143 MG/DL (<150)
[2023-07-22 09:32] LABS: ATYPICAL LYMPH 9 % (0-5); EOSINOPHILS 3 % (0-3); LYMPHOCYTES 21 % (16-44); MONOCYTES 1 % (0-5); NEUTROPHILS 65 % (28-66)
[2023-07-22 09:33] LABS: PLATELET CLUMPS MODERATE AMT; PLATELET ESTIMATE INVALID (NORMAL)
[2023-07-22 09:34] LABS: SMUDGE CELLS 1+
== END ==
LOC: M LAB 08:17
PROVIDERS: ATTEND Registered Nurse
DX: R71.8 Other abnormality of red blood cells (principal); R73.03 Prediabetes

== ENCOUNTER → 2023-08-10 | Outpatient (CLI) | payer BC ==
[~2023-08-10] MED LIST changes: +ALBU8.5H; +AZEL1SPR3; +FLUC10TA PO; +METF-838; +PRED20TA; +REGL10TA6 PO
== END ==
LOC: M RAD 08:55
PROVIDERS: ATTEND Registered Nurse
DX: K76.9 Liver disease, unspecified (principal)

== ENCOUNTER → 2023-08-16 | Outpatient (CLI) | payer BC ==
[~2023-08-16] MED LIST changes: +PROHANCE 279.3MG/ML 15ML VIAL ONE
== END ==
LOC: M PLAIMG 09:24
PROVIDERS: ATTEND Internal Medicine Gastroenterology
DX: D37.9 Neoplasm of uncertain behavior of digestive organ, unspecified (principal)
CPT/HCPCS: 74183; A9576

== ENCOUNTER → 2023-11-05 | Outpatient (CLI) | payer BC ==
[~2023-11-05] MED LIST changes: -PROHANCE 279.3MG/ML 15ML VIAL ONE
[2023-11-05 18:20] LABS: CREATININE FOR GFR 0.49 MG/DL (0.55-1.30); GLOMERULAR FILTRATION RATE > 60.0 (>60)
== END ==
LOC: M LAB 17:12
DX: D13.4 Benign neoplasm of liver (principal)

== ENCOUNTER → 2024-01-09 | Outpatient (REF) | payer BC ==
[2024-01-14 12:26] LABS: HPV APTIMA Not Detected (Not Detected)
== END ==
LOC: M SFHCWAGY 11:50
PROVIDERS: ATTEND Nurse Practitioner Family
DX: Z12.4 Encounter for screening for malignant neoplasm of cervix (principal)
CPT/HCPCS: 87624; G0123

== ENCOUNTER → 2024-01-09 | Outpatient (CLI) | payer BC | LOC: M WHC 15:29 | PROVIDERS: ATTEND Nurse Practitioner Family | DX: Z12.31 Encounter for screening mammogram for malignant neoplasm of breast (principal) ==

== ENCOUNTER → 2024-02-21 | Outpatient (CLI) | payer BC | LOC: M WUC 15:24 | PROVIDERS: ATTEND Nurse Practitioner Family | DX: M79.672 Pain in left foot (principal) ==

== ENCOUNTER 2024-03-17 06:11 | Observation (INO) | payer BC ==
[2024-03-17] VITALS (7 sets, daily range): BP systolic 116–130; BP diastolic 53–74; TEMP 97.5–99.9; O2SAT 96–98
[~2024-03-17] VITALS: Ht 144.8 cm; Wt 83.1 kg
[~2024-03-17 06:11] MED LIST changes: -ALBU8.5H; +ALBU8.5H INH; +BUDE10.32 INH; -METF-838; +METF-838 PO; +SPRI28TA PO
[2024-03-17 07:03] LABS: HEMATOCRIT 42.4 % (36.0-47.0); HEMOGLOBIN 13.9 g/dl (12.0-15.5); MEAN CORPUSCULAR HEMOGLOBIN 28.9 pg (27.0-33.0); MEAN CORPUSCULAR HGB CONC 32.8 g/dl (32.0-36.5); MEAN CORPUSCULAR VOLUME 88.1 fl (80.0-96.0); PLATELET COUNT, AUTOMATED 288 10^3/uL (150-450); RED BLOOD COUNT 4.81 10^6/uL (4.00-5.40)
[2024-03-17 07:16] LABS: BLOOD UREA NITROGEN 11 MG/DL (9-23); CALCIUM LEVEL 9.6 MG/DL (8.5-10.1); CARBON DIOXIDE LEVEL 25 MMOL/L (20-31); CHLORIDE LEVEL 103 MMOL/L (98-107); GLOMERULAR FILTRATION RATE > 60.0 (>58); GLUCOSE, FASTING 162 MG/DL (60-100); POTASSIUM SERUM 4.3 MMOL/L (3.5-5.1); SODIUM LEVEL 137 MMOL/L (136-145)
[2024-03-17] MEDS ORDERED: ROCURONIUM BROMIDE 50MG/5ML VIAL As Ordered ONE (07:16)
[2024-03-17] MEDS ORDERED: ONDANSETRON 4MG 2ML VIAL As Ordered ONE (07:16)
[2024-03-17] MEDS ORDERED: propofoL 200 MG/20 ML VIAL As Ordered ONE (07:16)
[2024-03-17] MEDS ORDERED: LIDOCAINE 2% 100MG/5ML SDV (FOR ANES.) As Ordered ONE (07:16)
[2024-03-17] MEDS ORDERED: MIDAZOLAM INJ 2MG/2ML VIAL As Ordered ONE (07:16)
[2024-03-17] MEDS ORDERED: ACETAMINOPHEN 1000MG/100ML IV BAG As Ordered ONE (07:16)
[2024-03-17] MEDS ORDERED: fentaNYL 100 MCG/2 ML INJECTION As Ordered ONE (07:16)
[2024-03-17] MEDS: NS 1,000 ML IV SCH ×2 (07:28→09:05)
[2024-03-17] MEDS ORDERED: METOCLOPRAMIDE INJ 10MG/2ML VIAL As Ordered ONE (07:46)
[2024-03-17] MEDS: ceFAZolin SOD 2 GM in IV 1 EA IV ONE (07:47)
[2024-03-17] MEDS ORDERED: ESMOLOL INJ 100MG/10ML VIAL As Ordered ONE (08:11)
[2024-03-17] MEDS ORDERED: SUGAMMADEX SODIUM 500 MG/5 ML VIAL (BRIDION) As Ordered ONE (08:13)
[2024-03-17] MEDS ORDERED: fentaNYL 100 MCG/2 ML INJECTION IV PRN (09:05)
[2024-03-17] MEDS ORDERED: ONDANSETRON 4MG 2ML VIAL IV PRN ×2 (09:05→15:10)
[2024-03-17] MEDS: METHYLENE BLUE 0.5% (5MG/ML) 10 ML AMP (PROVAYBLUE) As Ordered ONE (09:06)
[2024-03-17] MEDS ORDERED: dexmedeTOMIDine (4MCG/ML)200MCG/50ML BTL (PRECEDEX) As Ordered ONE (09:21)
[2024-03-17] MEDS: oxyCODONE 5MG TAB PO PRN (09:28)
[2024-03-17] MEDS: HYDROMORPHONE HCL 0.5 MG/ 0.5 ML SYRINGE IV PRN (09:29)
[2024-03-17] MEDS ORDERED: IBUP-1022 PO (09:32)
[2024-03-17] MEDS ORDERED: LR 1,000 ML IV SCH ×2 (11:30→15:10)
[2024-03-17] MEDS: PERCOCET 5MG/325MG TAB PO PRN ×2 (12:04→20:29)
[2024-03-17] MEDS: KETOROLAC 30 MG/ML 1ML VIAL IV PRN (17:55)
[2024-03-17] MEDS: DOCUSATE SODIUM 100MG CAPSULE PO SCH (20:28)
[2024-03-18] VITALS: BP 100/57; TEMP 98; O2SAT 95
[2024-03-18 04:00] VITALS: BP 131/73; TEMP 98.2; O2SAT 97
[2024-03-18 05:59] VITALS: BP 134/63; TEMP 98.3; O2SAT 96
[2024-03-18 10:02] VITALS: BP 117/57; TEMP 97.7; O2SAT 97
[2024-03-18] MEDS ORDERED: OXYC1TAB23 PO (10:15)
[2024-03-18] MEDS ORDERED: COLA100C5 PO (10:17)
[2024-03-18 13:19] VITALS: BP 112/75; TEMP 97.5; O2SAT 97
== END 2024-03-18 13:35 | disposition home or self-care (01) ==
LOC: M SDC 06:11 → M OBS 06:12
PROVIDERS: ADMIT Specialist; ATTEND Specialist
DX: D25.9 Leiomyoma of uterus, unspecified (principal); N88.8 Other specified noninflammatory disorders of cervix uteri; N32.89 Other specified disorders of bladder; N93.8 Other specified abnormal uterine and vaginal bleeding; R10.2 Pelvic and perineal pain
CPT/HCPCS: 36415; 58571; 80048; 81025; 85027; 86850; 86900; 86901; 88307; 96374; 96376; J0131; J0665; J0690; J1171; J1805; J1885; J2250; J2405; J2765; J3010

== ENCOUNTER → 2024-06-11 | Outpatient (CLI) | payer OTHER ==
[~2024-06-11] MED LIST changes: +COLA100C5 PO; +IBUP-1022 PO; +OXYC1TAB23 PO
== END ==
LOC: M RAD 15:43
PROVIDERS: ATTEND Nurse Practitioner Adult Health
DX: J45.901 Unspecified asthma with (acute) exacerbation (principal)

== ENCOUNTER → 2024-08-30 | Outpatient (REF) | payer OTHER | LOC: M LAB REF 11:20 | PROVIDERS: ATTEND Internal Medicine Gastroenterology | DX: K51.30 Ulcerative (chronic) rectosigmoiditis without complications (principal) ==

== ENCOUNTER → 2024-09-01 | Outpatient (REF) | payer OTHER ==
[2024-09-03 12:42] LABS: QuantiFERON-TB Gold Plus NEGATIVE (NEGATIVE)
== END ==
LOC: M LAB REF 14:14
PROVIDERS: ATTEND Internal Medicine Gastroenterology
DX: K51.30 Ulcerative (chronic) rectosigmoiditis without complications (principal)

== ENCOUNTER → 2024-11-14 | Day surgery (SDC) | payer OTHER ==
[~2024-11-14] VITALS: Ht 144.8 cm; Wt 78.5 kg
[~2024-11-14] MED LIST changes: +GLYCOPYRROLATE INJ 0.2 MG/ML 2 ML VIAL As Ordered ONE; +LIDOCAINE 2% 100 MG/5 ML SDV (FOR ANES.) As Ordered ONE; +SEMA2.4P PO
[2024-11-14 08:03] VITALS: TEMP 96.8
[2024-11-14 08:25] VITALS: BP 127/62; O2SAT 95
== END | disposition home or self-care (01) ==
LOC: M OPP 06:50
PROVIDERS: ATTEND Internal Medicine Gastroenterology
DX: K57.30 Diverticulosis of large intestine without perforation or abscess without bleeding (principal); K51.30 Ulcerative (chronic) rectosigmoiditis without complications; R10.84 Generalized abdominal pain; R12 Heartburn; Z88.2 Allergy status to sulfonamides; Z88.8 Allergy status to other drugs, medicaments and biological substances; Z79.84 Long term (current) use of oral hypoglycemic drugs; Z79.85 Long-term (current) use of injectable non-insulin antidiabetic drugs; Z79.899 Other long term (current) drug therapy; R56.9 Unspecified convulsions; J45.909 Unspecified asthma, uncomplicated
CPT/HCPCS: 43235; 45380; 88305; J1596; J3010

== ENCOUNTER → 2024-11-23 | Outpatient (CLI) | payer OTHER ==
[~2024-11-23] MED LIST changes: -GLYCOPYRROLATE INJ 0.2 MG/ML 2 ML VIAL As Ordered ONE; -LIDOCAINE 2% 100 MG/5 ML SDV (FOR ANES.) As Ordered ONE
[2024-11-23 10:49] LABS: BASO # 0.1 10^3/uL (0.0-0.2); BASO % 0.5 % (0.0-1.0); EOS # 0.2 10^3/uL (0.0-0.5); EOS % 2.2 % (0.0-3.0); LYMPH # 5.2 10^3/uL (1.5-5.0); LYMPH % 49.0 % (24.0-44.0); MONO # 0.6 10^3/uL (0.0-0.8); MONO % 5.5 % (2.0-8.0); NEUTROPHILS # 4.5 10^3/uL (1.5-8.5); NEUTROPHILS % 42.6 % (36.0-66.0); PLATELET COUNT, AUTOMATED 270 10^3/uL (150-450)
[2024-11-23 11:07] LABS: ESTIMATED AVERAGE GLUCOSE 120.0 MG/DL (60-110)
[2024-11-23 11:15] LABS: ALT/SGPT 36 U/L (7.0-40); AST/SGOT 22 U/L (<34); CALCIUM LEVEL 9.3 MG/DL (8.5-10.1); CARBON DIOXIDE LEVEL 28 MMOL/L (20-31); CHLORIDE LEVEL 107 MMOL/L (98-107); CHOLESTEROL LEVEL 196 MG/DL (<200); CHOLESTEROL RISK RATIO 3.11 (<5); CREATININE FOR GFR 0.61 MG/DL (0.55-1.30); GLOMERULAR FILTRATION RATE > 90.0 (>58); LDL CHOLESTEROL 116.2 MG/DL (<100); NON-HDL-C 133.0 MG/DL; POTASSIUM SERUM 4.0 MMOL/L (3.5-5.1); SODIUM LEVEL 144 MMOL/L (136-145); TRIGLYCERIDES LEVEL 84 MG/DL (<150)
== END ==
LOC: M LAB 10:08
PROVIDERS: ATTEND Registered Nurse
DX: R73.03 Prediabetes (principal)

== ENCOUNTER → 2024-11-23 | Outpatient (CLI) | payer OTHER ==
[2024-11-23 11:15] LABS: CREATININE FOR GFR 0.62 MG/DL (0.55-1.30); GLOMERULAR FILTRATION RATE > 90.0 (>58)
== END ==
LOC: M LAB 10:09
PROVIDERS: ATTEND Internal Medicine Gastroenterology
DX: K51.30 Ulcerative (chronic) rectosigmoiditis without complications (principal); K57.32 Diverticulitis of large intestine without perforation or abscess without bleeding

== ENCOUNTER → 2024-11-26 | Outpatient (CLI) | payer OTHER ==
[~2024-11-26] MED LIST changes: +ISOVUE-370 76% 100 ML VIAL ONE
== END ==
LOC: M PLAIMG 08:24
PROVIDERS: ATTEND Internal Medicine Gastroenterology
DX: K57.32 Diverticulitis of large intestine without perforation or abscess without bleeding (principal); K51.30 Ulcerative (chronic) rectosigmoiditis without complications; K76.0 Fatty (change of) liver, not elsewhere classified; D18.03 Hemangioma of intra-abdominal structures; N28.1 Cyst of kidney, acquired; K76.89 Other specified diseases of liver
CPT/HCPCS: 74177; Q9967

== ENCOUNTER 2025-02-03 12:33 | Outpatient (CLI) | payer OTHER ==
[~2025-02-03] VITALS: Ht 144.8 cm; Wt 73.6 kg
[~2025-02-03 12:33] MED LIST changes: -IBUP-1022 PO; +IBUP600T42 PO; -ISOVUE-370 76% 100 ML VIAL ONE
[2025-02-03 12:45] VITALS: BP 153/79; O2SAT 98
[2025-02-03] MEDS: D5W IV ONE (13:05)
[2025-02-03] MEDS: RISANKIZUMAB RZAA IV ONE (13:05)
[2025-02-03 15:03] VITALS: BP 134/84; O2SAT 100
== END 2025-02-03 15:15 ==
LOC: M INFU 12:33
PROVIDERS: ATTEND Internal Medicine Gastroenterology
DX: K51.318 Ulcerative (chronic) rectosigmoiditis with other complication (principal); Z88.2 Allergy status to sulfonamides; Z88.8 Allergy status to other drugs, medicaments and biological substances
CPT/HCPCS: 96365; 96366; J2327

== ENCOUNTER 2025-03-03 12:31 | Outpatient (CLI) | payer OTHER ==
[~2025-03-03] VITALS: Ht 170.2 cm; Wt 81.0 kg
[2025-03-03 12:45] VITALS: BP 135/72; O2SAT 99
[2025-03-03] MEDS: D5W IV ONE (13:05)
[2025-03-03] MEDS: RISANKIZUMAB RZAA IV ONE (13:05)
[2025-03-03 15:15] VITALS: BP 123/78; O2SAT 95
== END 2025-03-03 15:22 ==
LOC: M INFU 12:31
PROVIDERS: ATTEND Internal Medicine Gastroenterology
DX: K51.318 Ulcerative (chronic) rectosigmoiditis with other complication (principal)
CPT/HCPCS: 96365; 96366; J2327

== ENCOUNTER → 2025-03-24 | Outpatient (CLI) | payer OTHER | LOC: M WHC 14:00 | PROVIDERS: ATTEND Obstetrics & Gynecology | DX: Z12.31 Encounter for screening mammogram for malignant neoplasm of breast (principal); R92.323 Mammographic fibroglandular density, bilateral breasts ==